=== PATIENT | female | born 1960 | race Hispanic/Latino ===

== ENCOUNTER 2017-08-21 15:52 | Outpatient (CLI) | payer MEDICARE ==
--- NOTE | 2017-08-21 16:42 | RAD ---
CERVICAL SPINE TWO VIEW AP AND LATERAL STANDARD 08/21/17 HISTORY: Followup surgery. COMPARISON: MRI 2014. FINDINGS: Saturated appearance of the ACDF hardware at C5-C6 without hardware complication. Disc spaces are in good position. No listhesis. No evidence for hardware failure. Mild degenerative disease of the odontoid process and anterior arch of C1. IMPRESSION: Satisfactory appearance of ACDF hardware. POS: C
== END 2017-08-21 15:53 | disposition home or self-care (01) ==
LOC: TBSIIMAG 15:52
PROVIDERS: ATTEND Neurological Surgery
DX: M54.12 Radiculopathy, cervical region (principal); Z98.1 Arthrodesis status
CPT/HCPCS: 72040

== ENCOUNTER 2017-10-02 14:04 | Outpatient (CLI) | payer MEDICARE ==
--- NOTE | 2017-10-02 14:43 | RAD ---
5 VIEW CERVICAL SPINE: Date: 10/02/17 INDICATION: Follow-up neck surgery. COMPARISON: Prior exam dated 08/21/17. FINDINGS: There is ACDF C5-C7. The instrumentation projects in the expected position. Prevertebral soft tissues appear within normal limits. Spinal alignment is preserved. Lung apices are clear. IMPRESSION: Stable postoperative cervical spine. POS: KATEY
== END 2017-10-02 14:05 | disposition home or self-care (01) ==
LOC: TBSIIMAG 14:04
PROVIDERS: ATTEND Neurological Surgery
DX: M50.30 Other cervical disc degeneration, unspecified cervical region (principal); Z98.890 Other specified postprocedural states
CPT/HCPCS: 72040

== ENCOUNTER 2018-06-26 20:50 | Emergency (ER) | payer MEDICARE ==
[2018-06-26] MEDS ORDERED: Bacitracin Zinc 1 Packet ONE (21:08)
== END 2018-06-26 21:15 | disposition home or self-care (01) ==
LOC: SCSER 20:50
DX: G89.18 Other acute postprocedural pain (principal); M25.511 Pain in right shoulder; Z48.01 Encounter for change or removal of surgical wound dressing; E78.5 Hyperlipidemia, unspecified; I10 Essential (primary) hypertension; E11.40 Type 2 diabetes mellitus with diabetic neuropathy, unspecified
CPT/HCPCS: 99283

== ENCOUNTER 2018-09-25 11:25 | Emergency (ER) | payer MEDICARE | END 2018-09-25 12:33 | disposition home or self-care (01) | LOC: SCSER 11:25 | DX: H00.012 Hordeolum externum right lower eyelid (principal); E11.40 Type 2 diabetes mellitus with diabetic neuropathy, unspecified; E78.5 Hyperlipidemia, unspecified; I10 Essential (primary) hypertension | CPT/HCPCS: 99283 ==

== ENCOUNTER 2020-05-20 11:18 | Emergency (ER) | payer MEDICARE, SELFPAY ==
[2020-05-20] MEDS ORDERED: HYDROcodone/Acetaminophen 5/325 mg Tablet ONE (11:41)
--- NOTE | 2020-05-20 12:21 | RAD ---
LEFT HUMERUS 2 VIEWS: HISTORY: Fall with injury to arm. FINDINGS: There are no signs of fracture or dislocation. IMPRESSION: Negative left humerus. POS: AH
--- NOTE | 2020-05-20 12:22 | RAD ---
RIGHT HIP: HISTORY: Fall with hip pain. FINDINGS: No signs of fracture or dislocation. IMPRESSION: Negative right hip. POS: AH
--- NOTE | 2020-05-20 12:27 | RAD ---
THORACIC SPINE 3 VIEWS: HISTORY: Fell with back pian. FINDINGS: Vertebral bodies maintain normal height. Degenerative osteophytes were seen. Pedicles are intact. IMPRESSION: No acute injury. POS: AH
== END 2020-05-20 13:04 | disposition home or self-care (01) ==
LOC: ERS 11:18
DX: T14.8XXA Other injury of unspecified body region, initial encounter (principal); E11.40 Type 2 diabetes mellitus with diabetic neuropathy, unspecified; E78.5 Hyperlipidemia, unspecified; I10 Essential (primary) hypertension; Z79.899 Other long term (current) drug therapy; W01.10XA Fall on same level from slipping, tripping and stumbling with subsequent striking against unspecified object, initial encounter
CPT/HCPCS: 72072

== ENCOUNTER 2023-01-16 13:27 | Outpatient (CLI) | payer MEDICARE ==
[~2023-01-16 13:27] MED LIST: Iopamidol 370 76% 100 ML VIAL ONE
== END 2023-01-16 13:28 | disposition home or self-care (01) ==
LOC: BICCT 13:27
PROVIDERS: ATTEND Internal Medicine Medical Oncology
DX: C91.40 Hairy cell leukemia not having achieved remission (principal)
CPT/HCPCS: 74177; Q9967